=== PATIENT | female | born 1955 | race Caucasian/White ===

== ENCOUNTER 2020-04-30 14:12 | Day surgery (SDC) | payer BC ==
[2020-04-23 17:03] LABS: CLARITY,URINE CLEAR (Clear); COLOR,URINE YELLOW (Yellow); GLUCOSE, URINE >=1000 mg/dl (Neg); KETONES,URINE NEGATIVE (Neg); LEUKOCYTE ESTERASE ,URINE NEGATIVE (Neg); NITRITES, URINE NEGATIVE (Neg); OCCULT BLOOD,URINE TRACE-INTACT (Neg); PH,URINE 5.5 (4.8-8.0); PROTEIN,URINE NEGATIVE (Neg); UROBILINOGEN,URINE 0.2 E.U/dL (0.2-1.0)
[2020-04-23 17:06] LABS: BASOPHILS # (AUTO) 0.1 X10'3 (0-0.2); EOSINOPHILS # (AUTO) 0.3 X10'3 (0-0.9); LYMPHOCYTES # (AUTO) 2.1 X10'3 (1.1-4.8)
[2020-04-23 17:08] LABS: BASOPHILS % (AUTO) 0.7 % (0-1); EOSINOPHILS % (AUTO) 3.4 % (0-6); LYMPHOCYTES % (AUTO) 27.1 % (21-51); MEAN CORPUSCULAR HGB CONC 34.8 g/dL (33.0-36.5); MEAN PLATELET VOLUME 8.6 FL (7.4-10.4); MONOCYTES # (AUTO) 0.5 X10'3 (0-0.9); MONOCYTES % (AUTO) 7.1 % (2-12); NEUTROPHILS # (AUTO) 4.8 X10'3 (1.8-7.7); NEUTROPHILS % (AUTO) 61.7 % (42-75); PRE OP HEMATOCRIT 43.5 % (35.0-45.0); PRE OP HEMOGLOBIN 15.1 g/dL (12.0-16.0); PRE OP PLATELET COUNT 245 X10'3 (140-440); RED BLOOD COUNT 4.57 X10'6 (4.20-5.60); RED CELL DISTRIBUTION WIDTH 13.8 % (11.5-14.5)
[2020-04-23 17:09] LABS: UA COLLECTION TYPE CLN CATCH MIDSTREAM
[2020-04-23 17:11] LABS: BACTERIA,URINE FEW /HPF (Neg); MUCUS STRANDS NONE SEEN /LPF (Neg); RBC,URINE 0-2 /HPF (0-2); SQUAMOUS EPITHELIAL CELL,UR MODERATE /LPF (FEW); WBC,URINE 0-4 /HPF (0-4); YEAST FEW /HPF (NEGATIVE)
[2020-04-23 17:19] LABS: ALBUMIN 4.3 G/DL (3.4-5.0); ALBUMIN/GLOBULIN RATIO 1.1 (1.1-1.5); ALKALINE PHOSPHATASE 94 IU/L (46-116); BLOOD UREA NITROGEN 12 MG/DL (7-18); BUN/CREATININE RATIO 11.5 (6.6-38.0); CALCIUM 9.9 MG/DL (8.5-10.1); CHLORIDE 99 MMOL/L (99-107); CREATININE 1.04 MG/DL (0.40-0.90); PRE OP ALT 33 U/L (30-65); PRE OP ANION GAP 7 (8-16); PRE OP AST 22 U/L (10-37); PRE OP BILIRUB, TOTAL 0.4 MG/DL (0.0-1.0); PRE OP POTASSIUM 4.3 MMOL/L (3.4-5.1); PRE OP SODIUM 136 MMOL/L (135-145); TOTAL CARBON DIOXIDE 29.9 MMOL/L (24-32); TOTAL PROTEIN 8.3 G/DL (6.4-8.2); eGFR 54 ML/MIN
[2020-04-23 17:26] LABS: PRE OP GLUCOSE 278 MG/DL (70-104)
[~2020-04-30] VITALS: Ht 170.2 cm; Wt 113.9 kg
[2020-04-30] VITALS (7 sets, daily range): BP systolic 138–176; BP diastolic 55–79
[~2020-04-30 14:12] MED LIST: ATOR20TA66 PO; BIOTENE; DULA1.5P; EMPA10TA PO; ESCI20TA45 PO; ESTER C; FLUT16SP2 BOTHNARES; LEVO88TA2 PO; MULTIVITAMIN; TRAZ-256 PO; ceFOXitin 2GM-NS 100mL ADDvant 100 ML IV ONE; famotidine 20mg tablet PO ONE; ringers solution, lacted 1,000 ML IV SCH
[2020-04-30] MEDS ORDERED: sevoflurane 250ml liquid IH ONE (16:00)
[2020-04-30] MEDS ORDERED: dexamethasone sod phosphate 10mg/ml inj ONE (16:00)
[2020-04-30] MEDS ORDERED: ringers solution, lacted 1,000 ML IV SCH (16:04)
[2020-04-30] MEDS ORDERED: morphine 4 MG/ML inj SYRINge IV PRN (16:05)
[2020-04-30] MEDS ORDERED: proCHLORperazine 10 MG/2 ml inj IV PRN (16:05)
[2020-04-30] MEDS ORDERED: meperidine/PF 25mg/ml syringe IV PRN ×3 (16:05)
[2020-04-30] MEDS ORDERED: ondansetron/PF 4mg/2ml inj IV PRN (16:05)
[2020-04-30] MEDS ORDERED: morphine 2 MG/ML inj. syringe IV PRN (16:05)
[2020-04-30] MEDS ORDERED: fentaNYL/PF 50MCG/1 ML 2ML syringe ONE (16:12)
[2020-04-30] MEDS ORDERED: midazolam 2 mg/2 ml injection ONE (16:12)
[2020-04-30] MEDS ORDERED: ondansetron/PF 4mg/2ml inj ONE (16:25)
[2020-04-30] MEDS ORDERED: LIDOcaine 2% (20mg/ml) 5ml vial ONE (16:25)
[2020-04-30] MEDS ORDERED: propofol inj 20 ML IV ONE (16:25)
[2020-04-30] MEDS ORDERED: acetaminophen 1,000mg/100ml IV 100 ML IV ONE (16:46)
--- NOTE | 2020-04-30 16:56 | NUR ---
Received from OR via [facility] , accompanied by Anesthesiologist JASMINA and report given by Anesthesiolgist. PATIENT WITH 20G PIV IN RIGHT UE RUNNING LR AT 100. DENIES PAIN AT THIS TIME. LOAN PAD IN PLACE WITH NO DRAINAGE. VSS. 10L MASK ON WITH 98% SATURATIONS. Addendum: 04/30/20 at 1706 by Mic Izquierdo RN, RN Amended: Links added.
[2020-04-30] MEDS ORDERED: labetalol 20mg/4ml (5mg/ml) syringe IV PRN (17:30)
--- NOTE | 2020-04-30 17:46 | NUR ---
PATIENT HAS MET ALL DC CRITERIA FOR DC HOME. I HAVE REVIEWED D/C INSTRUCTIONS WITH PATIENT AND FAMILY AND THEY HAVE VERBALIZED UNDERSTANDING, OPPORTUNITY TO ASK QUESTIONS GIVEN AND PATIENT COMFORTABLE WITH DC. IV TAKEN OUT WITHOUT COMPLICATION. OUT VIA WHEELCHAIR WHERE PATIENT WAS TAKEN HOME WITH ALL BELONGINGS. FAMILY GAVE PATIENT TRANSPORT HOME. Addendum: 04/30/20 at 1759 by Mic Izquierdo RN, RN Amended: Links added.
== END 2020-04-30 17:46 | disposition home or self-care (01) ==
LOC: PAS 14:12
PROVIDERS: ATTEND Obstetrics & Gynecology Obstetrics
DX: N84.0 Polyp of corpus uteri (principal); N95.0 Postmenopausal bleeding; F32.9 Major depressive disorder, single episode, unspecified; E11.9 Type 2 diabetes mellitus without complications; E66.01 Morbid (severe) obesity due to excess calories; Z68.39 Body mass index [BMI] 39.0-39.9, adult; F17.210 Nicotine dependence, cigarettes, uncomplicated; Z72.89 Other problems related to lifestyle; G47.30 Sleep apnea, unspecified; Z11.59 Encounter for screening for other viral diseases; Z79.899 Other long term (current) drug therapy
CPT/HCPCS: 36415; 58558; 71046; 80053; 81001; 82948; 85025; 86885; 86900; 86901; 87635; 93005; J0131; J0694; J1100; J2001; J2250; J2405; J2704; J3010; J7030; A4355; A4618; A6253; A6258; A7000; J7120